=== PATIENT | female | born 1940 | race Caucasian/White ===

== ENCOUNTER → 2020-09-15 | Outpatient (CLI) | payer MEDICARE, OTHER ==
[2020-07-09 11:07] VITALS: BP 105/39
[~2020-09-15] MED LIST: ACYC400T PO; ALEN70TA3 PO; ASPI-630 PO; ATOV750O PO; FAMO40TA4 PO; FURO40TA4 PO; IBUP-1060 PO; METO-269 PO; OMEP2.5S2 PO; OXYC5CAP PO; PRED-220 PO; TRIA1TAB2 PO
--- NOTE | 2020-09-15 14:57 | KCIC ---
MRI of the thoracic and lumbar spine without contrast 09/15/2020 CLINICAL HISTORY: Mid and low back pain. History of multiple myeloma and compression fractures. TECHNIQUE: Unenhanced T1-weighted and T2-weighted sagittal and axial and inversion recovery sagittal images of the thoracic and lumbar spine were obtained. FINDINGS: Comparison is made to patient's previous MRIs the thoracic and lumbar spine performed at [facility] in [place], [place] dated 06/24/2020. Mild S-shaped curvature of the thoracolumbar spine is seen. Mild anterolisthesis of L4 in relation L5 is noted. Degenerative signal changes are seen involving all of the disks of the thoracic and lumbar spine. Degenerative signal changes are seen within the marrow surrounding these discs. No area of ab normal signal intensity is seen involving the thoracic spinal cord. Multiple rounded high signal inte nsity lesions are seen scattered throughout both kidneys on the T2-weighted images. These measure 3 m m to 2.6 cm in size. These likely represent cysts. No further imaging evaluation is recommended. Multiple metastasis are seen scattered throughout the thoracic and lumbosacral vertebrae along with t he iia. These measure 3 mm to 3 cm in size. Pathologic compression fracture of the T3 vertebral body is again seen, unchanged. Compression fracture of the L1 vertebral body is again noted. No acute comp ression fracture is seen. A central/left paracentral focal disc herniation is again seen at T7-8 which extrudes inferiorly. Thi s measures 5 mm in AP diameter. This effaces the anterior CSF resulting in mild to moderate left grea ter than right central spinal canal stenosis and mildly impinges upon the thoracic spinal cord, left greater than right. At the T12-L1 disc space there is a moderate generalized disc bulge. Posterior vertebral body osteoph yte formation projects superiorly and posteriorly from the L1 vertebral body. This measures 5 mm in A P diameter. These findings result in mild to moderate central spinal canal stenosis without significa nt cord impingement. Degenerative changes are seen involving the thoracic spine consisting of minimal to mild generalized disc bulges and degenerative changes involving the facet joints. These findings do not result in gideon tional areas of significant central spinal canal stenosis. Severe right neural foraminal stenosis is seen at T1-2. Moderate left neural foraminal stenosis is seen at T10-11. The changes of degenerative disc disease are seen throughout the lumbar spine. These consist of mild to moderate generalized disc bulges, degenerative changes involving the facet joints and mild to mode rate ligamentum flavum hypertrophy bilaterally. These findings result in mild central spinal canal st enosis with mild to moderate right greater than left neural foraminal stenosis at L3-4, severe centra l spinal canal stenosis with mild to moderate bilateral neural foraminal stenosis, left greater than right at L4-5 and mild to moderate left neural foraminal stenosis at L5-S1. IMPRESSION: 1. Multiple metastasis are again seen throughout the thoracic and lumbosacral spine and visualized il ia, unchanged. 2. Compression fractures of the T3 and L1 vertebral bodies are again noted, unchanged. No acute compr ession fracture is seen. 3. . Degenerative changes are seen involving the thoracic and lumbar spine which results in multileve l central spinal canal and neural foraminal stenosis of varying severity as discussed above. Electronically signed by: Yung Chen MD (09/15/2020 2:54 PM) [id number]
== END ==
LOC: KCIC MRI 10:04
PROVIDERS: ATTEND Orthopaedic Surgery
DX: M47.815 Spondylosis without myelopathy or radiculopathy, thoracolumbar region (principal); M48.05 Spinal stenosis, thoracolumbar region
CPT/HCPCS: 72146; 72148